=== PATIENT | male | born 1970 | race African-American/Black ===

== ENCOUNTER 2021-12-14 13:52 | Emergency (ER) | payer SELFPAY ==
[2021-12-14 14:00] VITALS: TEMP 98.7; BMI 34.9
[2021-12-14 15:22] LABS: BASO % 1.5 % (0-2.0); EOS % 0.6 % (0-4.5); HEMATOCRIT 45.7 % (35.4-49); HEMOGLOBIN 15.6 GM/dL (11.7-16.9); LYMPH % 19.2 % (8-40); MCH 28.4 pg (25.7-33.7); MCHC 34.1 g/dl (32.0-35.9); MEAN CELL VOLUME 83.3 fl (80-96); MEAN PLT VOLUME 8.8 fl (7.5-11.1); MONO % 7.9 % (3.8-10.2); NEUT % 70.8 % (42.8-82.8); PLATELET COUNT 329 10^3/uL (134-434); RBC 5.48 M/mm3 (4.00-5.60); RDW 13.9 % (11.9-15.9); WHITE BLOOD COUNT 8.5 K/mm3 (4.0-10.0)
[2021-12-14 15:26] LABS: URINE APPEARANCE CLEAR; URINE BILIRUBIN NEGATIVE (NEGATIVE); URINE COLOR YELLOW; URINE GLUCOSE (UA) NEGATIVE (NEGATIVE); URINE KETONE 1+ (NEGATIVE); URINE LEUK ESTERASE NEGATIVE (NEGATIVE); URINE NITRITE NEGATIVE (NEGATIVE); URINE PROTEIN NEGATIVE (NEGATIVE)
[2021-12-14 15:41] LABS: BLOOD UREA NITROGEN 13.1 mg/dL (7-18); CALCIUM 9.5 mg/dL (8.5-10.1)
[2021-12-14 15:44] LABS: CREATININE 1.1 mg/dL (0.55-1.3); URIC ACID 6.1 mg/dL (2.6-7.2)
[2021-12-14 15:46] LABS: BILIRUBIN,TOTAL 0.5 mg/dL (0.2-1); TOT PROT 7.7 g/dl (6.4-8.2)
[2021-12-14] MEDS ORDERED: COLCHICINE 0.6 MG TAB PO ONE (16:13)
[2021-12-14] MEDS ORDERED: INDOMETHACIN 50 MG CAPSULE PO ONE (16:14)
[2021-12-14] MEDS ORDERED: COLCHICINE 0.6 MG TAB ONE (16:22)
[2021-12-14 16:51] VITALS: BP 178/110; PULSE 78; RESP 19
== END 2021-12-14 16:48 | disposition home or self-care (01) ==
LOC: JER 13:52
DX: M10.072 Idiopathic gout, left ankle and foot (principal); I10 Essential (primary) hypertension
CPT/HCPCS: 36415; 73630-TC-LT; 80053; 81003; 84550; 85025; 99284-25